=== PATIENT | male | born 1990 | race African-American/Black ===

== ENCOUNTER 2022-08-12 19:38 | Inpatient (IN) | payer OTHER ==
[~2022-08-12] VITALS: Ht 182.9 cm; Wt 128.4 kg
--- NOTE | 2022-08-12 19:58 | NUR ---
Dr Cohen at bedside MSE in progress
[2022-08-12] MEDS ORDERED: HYDROMORPHONE 1 MG/1 ML DISP.SYRIN ONE ×2 (19:59→22:59)
[2022-08-12] MEDS ORDERED: ONDANSETRON 4 MG/2 ML VIAL ONE (19:59)
[2022-08-12] MEDS ORDERED: IV NORMAL SALINE 1000 ML BAG IV ONE (20:00)
[2022-08-12] MEDS ORDERED: ONDANSETRON 4 MG/2 ML VIAL IV ONE (20:00)
[2022-08-12] MEDS ORDERED: HYDROMORPHONE 1 MG/1 ML DISP.SYRIN IV ONE ×2 (20:00→23:00)
[2022-08-12 20:19] LABS: HEMATOCRIT 47.8 % (36.7-47.1); MEAN CORPUSCULAR HEMOGLOBIN 29.7 uug (23.8-33.4); MEAN CORPUSCULAR VOLUME 88.7 fL (73.0-96.2); PLATELET COUNT (AUTO) 396 K/uL (152-348)
--- NOTE | 2022-08-12 20:20 | NUR ---
Patient taken to CT by prosthetics technician
--- NOTE | 2022-08-12 20:33 | NUR ---
Patient is back from CT
[2022-08-12 20:34] LABS: BILIRUBIN,DIRECT 0.4 mg/dL (0.0-0.2); BILIRUBIN,TOTAL 0.9 mg/dL (0.2-1.0); CREATININE 1.5 mg/dL (0.6-1.3); POTASSIUM 3.6 mmol/L (3.5-5.1); TOTAL PROTEIN, SERUM 8.2 g/dL (6.4-8.2)
[2022-08-12] MEDS ORDERED: PIPERACILLIN/TAZO 4.5 GM VIAL IV ONE (21:04)
[2022-08-12] MEDS: PIPERACILLIN SODIUM/TAZOBACTAM 4.5 G in IV DEXTROSE 5% 50 ML IV SCH (21:12)
--- NOTE | 2022-08-12 22:13 | NUR ---
called [facility] for panel call
--- NOTE | 2022-08-12 22:14 | NUR ---
patient is a/ox4, NAD noted.
[2022-08-12 22:31] LABS: *BILIRUBIN,URIN NEGATIVE (NEGATIVE); *BLOOD, URINE NEGATIVE (NEGATIVE); *CLARITY,URINE CLEAR (CLEAR); *COLOR,URINE YELLOW (YELLOW); *KETONES,URINE NEGATIVE (NEGATIVE); LEUKOCYTE ESTERASE ,URINE NEGATIVE (NEGATIVE); NITRITE, URINE NEGATIVE (NEGATIVE); UGLUCOSE NEGATIVE (NEGATIVE)
[2022-08-12 22:36] LABS: BACTERIA,URINE NONE SEEN /HPF (NONE SEEN); RBC,URINE 0-3 /HPF (0-3); WBC,URINE 0-3 /HPF (0-3)
[2022-08-12 22:37] LABS: SQUAMOUS EPITHELIAL CELL,UR FEW /HPF (NONE SEEN)
--- NOTE | 2022-08-12 23:15 | NUR ---
Patient has been accepted by Bear Bermudez NP
--- NOTE | 2022-08-12 23:30 | NUR ---
Paged Dr Lewis for surgery consult
--- NOTE | 2022-08-12 23:31 | NUR ---
called for bed. spoke with Terri THACKER. Patient will be admited to m/s room 321
--- NOTE | 2022-08-12 23:40 | NUR ---
Report given to APURVA THACKER
--- NOTE | 2022-08-13 00:22 | NUR ---
Pt. admitted to m/s room 321 , under care of Bear Bermudez [employer] REPAIRER Belongs List completed Alex RN aware of patient's arrival
--- NOTE | 2022-08-13 01:20 | NUR ---
On room air, sating at 88%, placed pt on O2 at 2LPM now sating at 93%. Noted pt to have SOB and shallow breathing. Will continue to monitor. All needs attended. Addendum: 08/14/22 at 0351 by CARLYLE WILL RN Correction 08/14/22 0130.
[2022-08-13] MEDS ORDERED: REMEDY ESSENTIAL ZINC PASTE 113 GM TP PRN (01:45)
[2022-08-13 04:00] VITALS: BP 110/58
[2022-08-13] MEDS: HYDROMORPHONE 1 MG/1 ML DISP.SYRIN IV PRN ×7 (04:28→23:05)
[2022-08-13] MEDS ORDERED: PIPERACILLIN/TAZO 4.5 GM VIAL IV ONE (04:57)
[2022-08-13] MEDS ORDERED: PIPERACILLIN SODIUM/TAZOBACTAM 4.5 G in IV DEXTROSE 5% 50 ML IV SCH (06:00)
[2022-08-13] MEDS: PIPERACILLIN SODIUM/TAZOBACTAM 4.5 G in IV DEXTROSE 5% 50 ML IV SCH (06:26)
[2022-08-13 06:51] LABS: BILIRUBIN,TOTAL 3.5 mg/dL (0.2-1.0); CREATININE 1.2 mg/dL (0.6-1.3); PHOSPHOROUS 4.4 mg/dL (2.5-4.9); POTASSIUM 4.5 mmol/L (3.5-5.1); TOTAL PROTEIN, SERUM 7.4 g/dL (6.4-8.2)
[2022-08-13 06:56] LABS: HEMATOCRIT 46.5 % (36.7-47.1); MEAN CORPUSCULAR HEMOGLOBIN 29.4 uug (23.8-33.4); MEAN CORPUSCULAR VOLUME 88.9 fL (73.0-96.2); PLATELET COUNT (AUTO) 344 K/uL (152-348)
--- NOTE | 2022-08-13 07:47 | NUR ---
Sleeping, appears comfortable.
[2022-08-13 11:00] VITALS: BP 122/80
[2022-08-13] MEDS: IV NS 1000 ML 1,000 ML IV PRN ×2 (11:31→20:09)
--- NOTE | 2022-08-13 11:31 | NUR ---
NPO maintained. IVF started as ordered, infusing well.
[2022-08-13] MEDS: ENOXAPARIN SODIUM 40 MG/0.4 ML DISP.SYRIN SQ SCH (11:33)
[2022-08-13] MEDS: PIPERACILLIN SODIUM/TAZOBACTAM 3.375 G in IV DEXTROSE 5% 100 ML IV SCH ×2 (13:50→22:55)
[2022-08-13 15:58] VITALS: BP 120/73
--- NOTE | 2022-08-13 18:31 | NUR ---
With intermittent pain relief do not last for 3 hours, dose increased. NPO maintained. IVF infusing well.
[2022-08-13] MEDS ORDERED: FLUT16SP16 NS (18:50)
[2022-08-13 19:58] VITALS: BP 123/77
[2022-08-13] MEDS: FLUCONAZOLE 200 MG/NS 100ML IV 100 MG in PREMIXED 1 EACH IV SCH (20:36)
[2022-08-14] MEDS: HYDROMORPHONE 1 MG/1 ML DISP.SYRIN IV PRN ×7 (02:41→21:15)
[2022-08-14 04:00] VITALS: BP 111/63
[2022-08-14] MEDS: PIPERACILLIN SODIUM/TAZOBACTAM 3.375 G in IV DEXTROSE 5% 100 ML IV SCH ×3 (05:43→21:52)
--- NOTE | 2022-08-14 06:24 | NUR ---
Slept intermittently. Complained of 10/ abdominal pain. Administered Dilaudid 1 mg q3h prn as ordered. Pt reported some relief. Pt also requested for ice chips to relieve dryness of mouth. Instructed pt not to swallow. Reports increased abdominal pain when swallowing water from ice chips. IVF infusing well. All needs attended. Will endorse to incoming shift. Addendum: 08/14/22 at 0639 by CARLYLE WILL RN Noted increased HR and urine output to be orange to red in color. MD lloyd.
[2022-08-14 07:21] LABS: HEMATOCRIT 44.5 % (36.7-47.1); MEAN CORPUSCULAR VOLUME 88.3 fL (73.0-96.2); PLATELET COUNT (AUTO) 345 K/uL (152-348)
[2022-08-14 07:28] LABS: CREATININE 1.1 mg/dL (0.6-1.3); MAGNESIUM 1.9 mg/dL (1.8-2.4); PHOSPHOROUS 2.4 mg/dL (2.5-4.9); POTASSIUM 4.1 mmol/L (3.5-5.1)
[2022-08-14] MEDS: ENOXAPARIN SODIUM 40 MG/0.4 ML DISP.SYRIN SQ SCH (08:53)
[2022-08-14 12:00] VITALS: BP 116/70
[2022-08-14] MEDS: IV NS 1000 ML 1,000 ML IV PRN (14:28)
[2022-08-14 16:05] VITALS: BP 123/75
[2022-08-14] MEDS ORDERED: SODIUM PHOSPHATE MM 15 MMOL in IV NORMAL SALINE 250 ML IV ONE (17:00)
[2022-08-14 20:33] VITALS: BP 128/80
[2022-08-14] MEDS: FLUCONAZOLE 200 MG/NS 100ML IV 100 MG in PREMIXED 1 EACH IV SCH (20:54)
[2022-08-15] VITALS (12 sets, daily range): BP systolic 121–160; BP diastolic 58–101
[2022-08-15] MEDS: HYDROMORPHONE 1 MG/1 ML DISP.SYRIN IV PRN ×3 (00:19→08:03)
[2022-08-15] MEDS: IV NS 1000 ML 1,000 ML IV PRN ×2 (00:23→13:31)
[2022-08-15] MEDS: PIPERACILLIN SODIUM/TAZOBACTAM 3.375 G in IV DEXTROSE 5% 100 ML IV SCH ×2 (06:08→14:03)
[2022-08-15 07:22] LABS: HEMATOCRIT 42.1 % (36.7-47.1); MEAN CORPUSCULAR HEMOGLOBIN 29.7 uug (23.8-33.4); MEAN CORPUSCULAR VOLUME 88.2 fL (73.0-96.2); PLATELET COUNT (AUTO) 378 K/uL (152-348)
[2022-08-15 07:26] LABS: MAGNESIUM 1.9 mg/dL (1.8-2.4); POTASSIUM 3.9 mmol/L (3.5-5.1)
[2022-08-15] MEDS: ENOXAPARIN SODIUM 40 MG/0.4 ML DISP.SYRIN SQ SCH (09:01)
--- NOTE | 2022-08-15 10:55 | NUR ---
Marlen Liang DNP in the unit, informed DNP regarding WBC result and patient's complain of bilateral leg pain with new orders.
[2022-08-15] MEDS ORDERED: ACETAMINOPHEN 650 MG SUPP.RECT RC PRN (11:00)
[2022-08-15] MEDS ORDERED: IOHEXOL 300MG/ML 100 ML INFUS..BTL ONE (11:04)
[2022-08-15] MEDS ORDERED: SWABABLE VALVE TRANSFER SET EA MC ONE (11:05)
[2022-08-15] MEDS ORDERED: IV NORMAL SALINE 250 ML IV ONE (11:05)
[2022-08-15] MEDS: MORPHINE SULFATE 4 MG/1 ML DISP.SYRIN IV PRN ×5 (11:07→21:15)
[2022-08-15] MEDS: ONDANSETRON 4 MG/2 ML VIAL IV PRN (11:16)
--- NOTE | 2022-08-15 14:30 | NUR ---
Patient seen by Marlen Liang DNP with order to insert NGT and connect to continuous low suction. NGT inserted and noted 260 ml greenish fluid coming out of NGT. DNP made aware.
[2022-08-15] MEDS ORDERED: OXYMETAZOLINE NASAL 0.05% 15 ML SPRAY NS PRN (14:45)
[2022-08-15] MEDS: FLUTICASONE PROP NASAL SPRAY 16 GM BOTTLE NS SCH (14:45)
[2022-08-15] MEDS ORDERED: MEROPENEM 0.5 G in IV NORMAL SALINE 50 ML IV SCH (15:15)
[2022-08-15] MEDS ORDERED: IV NS 1000 ML 1,000 ML IV ONE (15:30)
[2022-08-15 16:00] LABS: HEMATOCRIT 43.6 % (36.7-47.1); MEAN CORPUSCULAR HEMOGLOBIN 29.4 uug (23.8-33.4); PLATELET COUNT (AUTO) 420 K/uL (152-348)
[2022-08-15] MEDS: METRONIDAZOLE 500 MG/NS 100ML 500 MG in PREMIXED 1 EACH IV SCH (16:00)
--- NOTE | 2022-08-15 16:05 | NUR ---
Transferred patient to ICU rm 1A. report given to Deirdre THACKER.
--- NOTE | 2022-08-15 16:30 | NUR ---
Nursing customer records division supervisor Lauren informed of the need of a Midline insertion. Awaiting ML rn. arrival confirmation time.
--- NOTE | 2022-08-15 17:27 | NUR ---
Received pt. On sinus tachycardia temp of 100.5 for which a suppository was immediately administered. Sbp within desire limits. 140/56. RR14, IV NC 2 liters with saturation of 95%. Pt. with c/of of feeling unable to take a deep breath. IV line to LAC G-20 with dry blood and scant leaking noted but patent, upon testing. New RAC G 20 started. Pt. situated in bed by endorsing rn. Will continue with care plan
[2022-08-15] MEDS ORDERED: MORPHINE SULFATE 4 MG/1 ML DISP.SYRIN ONE ×2 (17:38→21:03)
--- NOTE | 2022-08-15 18:50 | NUR ---
Left pt. in bed resting, sleeping intermittently, When not sleeping fully AAOX4. Hemodynamically stable, NSR HR in the 8-95. On 2liter Nc with saturation of 95-98%. Shallow breathing. NG to low intermittent suctioning. with small amount of greenish bile fluid. Iv line to LAC patent and RAC dcd and new G18 inserted to right hand. Will endorse to incoming shift for continuity of care.
[2022-08-15] MEDS: VANCOMYCIN IV 1,500 MG in IV DEXTROSE 5% 500 ML IV SCH (18:54)
[2022-08-15] MEDS ORDERED: LIDOCAINE 2% (GLYDO= UROJET) 10 ML JELLY MM PRN (20:00)
[2022-08-15] MEDS ORDERED: LIDOCAINE 2% (GLYDO= UROJET) 10 ML JELLY MM ONE (20:16)
--- NOTE | 2022-08-15 20:45 | NUR ---
Pt. was endorsed by off going day nurse Deirdre RN. Complete assessment rendered as documemted on flowsheet. Pt. was c/o discomfort to throat from NGT insertion. Rosie obtained from Dr. Cohen for lidocaine jelly 5cc to be placed in throat. Repeat in 15 min. if pain/discomfort not resolved. PTT drawn and sent to lab for pending procedeure.
--- NOTE | 2022-08-15 21:16 | NUR ---
Pt. taken down to Radiology accompanied by RN AGRICULTURE INSPECTOR and tech. MOrphine 4mg ivp given for abdominal pain and remaining 5 cc of lidocaine given for c/o throat discomfort. Pt. reported feeling effects of pain medication Morphine within 40 sec. of injection. decreased pain.
[2022-08-15] MEDS ORDERED: LIDOCAINE HCL 1% 20 ML VIAL ONE (21:38)
--- NOTE | 2022-08-15 22:20 | NUR ---
Pt.received back to unit. Tolerated procedure. Drain noted to right lower abdomen with opaque yellow orange secretions noted at 260cc. pt, commenting on procedure. Family allowed to come see pt, briefly before leaving. acclimated to unit. VS q 15 x 1 hour. Lab will be sending cytology specimen out for evaluation.
--- NOTE | 2022-08-15 22:33 | NUR ---
924 pt taken from ER bed 1B to CT scan 929 Time out done for right abdominal procedure with CT scan. 956 procedure done pt talerated procedure well stable. Place on O2 at 3 lpm nc for procedure 2209 Cytolgy sample sent to lab for send out. 2214 pt back in ER bed 1B awake alert with agustin working on right side of lateral abdomin. 2219 report given to Jorge FAGOT HEATER.
--- NOTE | 2022-08-15 23:00 | NUR ---
Pharmacy called and spoke to Joseline downstream biomanufacturing technician. Made aware that due to pt. going for procedure and IV line access limited that ABX are running off schedule. Said to make note of situation . Pharmacy would not be changing schedule of meds at this time.
--- NOTE | 2022-08-15 23:00 | NUR ---
Left AC Iv acess site removed. Catheter intact. Pt. reports "tenderness" but denies pain. Flushes well but no aspiration. New IV site started to Right hand. #20 cathlon placed 2nd attempt without incident.
[2022-08-16] VITALS (10 sets, daily range): BP systolic 126–146; BP diastolic 73–87
[2022-08-16] MEDS ORDERED: IV NORMAL SALINE 500 ML IV ONE (00:15)
[2022-08-16] MEDS ORDERED: MORPHINE SULFATE 4 MG/1 ML DISP.SYRIN ONE ×3 (00:15→07:43)
[2022-08-16] MEDS: MORPHINE SULFATE 4 MG/1 ML DISP.SYRIN IV PRN ×6 (00:21→21:14)
[2022-08-16] MEDS: FLUCONAZOLE 200 MG/NS 100ML IV 100 MG in PREMIXED 1 EACH IV SCH ×2 (00:30→20:55)
[2022-08-16] MEDS: MEROPENEM 1 G in IV NORMAL SALINE 100 ML IV SCH ×4 (00:32→22:37)
[2022-08-16] MEDS: METRONIDAZOLE 500 MG/NS 100ML 500 MG in PREMIXED 1 EACH IV SCH ×2 (01:45→07:52)
--- NOTE | 2022-08-16 01:50 | NUR ---
Made pharmacy aware that Vancomycin trough was not drawn prior to the 0200 am scheduled dose. Lab scheduled to be drawn at 1700 08/16/22. Pharmacist said to give 0200 dose as scheduled. This was in reference to the note written by pharmacy to hold for trough >20. No trough to telephone sterilizer by at this time.
[2022-08-16] MEDS: VANCOMYCIN IV 1,500 MG in IV DEXTROSE 5% 500 ML IV SCH ×3 (03:15→18:14)
--- NOTE | 2022-08-16 03:54 | NUR ---
Pt. sleeping at present time VSS. No c/o pain. Last MSO4 dose at 0315. Exdplained to pt. that if hes sleeping that I would not wake him up to receive meds for pain. They are not scheduled. He was inquiring as to if he missed a dose because of sleeping. Abdominal drain intact. No leakage.
[2022-08-16 05:21] LABS: HEMATOCRIT 40.6 % (36.7-47.1); MEAN CORPUSCULAR HEMOGLOBIN 29.3 uug (23.8-33.4); MEAN CORPUSCULAR VOLUME 87.8 fL (73.0-96.2); PLATELET COUNT (AUTO) 403 K/uL (152-348)
[2022-08-16 05:31] LABS: CREATININE 0.9 mg/dL (0.6-1.3); PHOSPHOROUS 2.6 mg/dL (2.5-4.9); POTASSIUM 3.6 mmol/L (3.5-5.1)
[2022-08-16] MEDS: IV NS 1000 ML 1,000 ML IV PRN (06:23)
--- NOTE | 2022-08-16 06:25 | NUR ---
PICC LINE RN in for placement of line for patient. MidLine placed to left upper arm instead of PICC. Pt. toleratede well. Pt. continues to c/o discomfort to throat secondary to NGT. Remains intact to LIS. PLacement verified. NO secretions from nares noted. We will ask MD to re evaluate need for drain and to speak with pt. Endorsed pt. to oncoming RN. All procedures explained to patient. He appears to be overwhelmed. VSS
--- NOTE | 2022-08-16 07:33 | NUR ---
Received pt. sleeping/intermittently. cardiac-on sinus tachycardia low 100's. sbp within desired limits. on NC 2liters with saturation of 96%. Afebrile. Abdominal distention with cari drainage with yellowish drainage in small amount. in place since 209908/15/22. Mline in place newly placed. Will continue to monitor.
[2022-08-16] MEDS ORDERED: ENOXAPARIN SODIUM 40 MG/0.4 ML DISP.SYRIN SQ ONE (07:43)
[2022-08-16] MEDS: ENOXAPARIN SODIUM 40 MG/0.4 ML DISP.SYRIN SQ SCH (08:06)
[2022-08-16] MEDS: FLUTICASONE PROP NASAL SPRAY 16 GM BOTTLE NS SCH (08:11)
--- NOTE | 2022-08-16 08:11 | NUR ---
flonase not administered pt with NG tube refusing because he feels something in his throat.
--- NOTE | 2022-08-16 08:14 | NUR ---
A call to attending BRYANT Liang at this time she was informed of pt's clinical condition and most current complains orders. to dcd NG-T received and implemented.
--- NOTE | 2022-08-16 08:21 | NUR ---
Surgeon Dr. Lewis at bedside. Addendum: 08/16/22 at 0822 by JERRY CABALLERO RN Per surgeon may have some ice-chips.
--- NOTE | 2022-08-16 11:13 | NUR ---
Attending BRYANT Mckeon in the unit to see and examine pt. report given and orders to down-grade pt. to telemetry and to resend drainage specimen received and implemented.
--- NOTE | 2022-08-16 11:28 | NUR ---
Telephone report given to Cesar Shannon. patient will be taken up to 321 under telemetry monitoring. Patient AAOX4. no changes from assessment this morning HR of 89 sbp 132/70 saturation 96%. no respiratory distress noted. Ml patent and infusing with Fluids.
--- NOTE | 2022-08-16 11:40 | NUR ---
Patient scrap picker by Cesra merritt in the waiting area notified.
--- NOTE | 2022-08-16 13:00 | NUR ---
Bowel sounds hypoactive throughout. Discussed to pt importance of staying NPO and to let his stomach rest and will limit his ice chips. Pt agreeable with plan of care. External drainage on right abd draining cloudy yellow fluids. Instructed pt to use IS x 10 WA to promote lung expansion and deep breathing. Pt able to properly return demonstrate use of IS. Discussed with pt pain management offered to try to use ICE on abdomen - pt agreeable. Discussed side effects of pain medications with constipations and respiratory distress. Pt has multiple iV sites. Pt has right hand #20, L upper midline, and right hand #20. All patent and flushed without any resistance. Pt on tele SNR. will continue to monitor patient. Pt currently denies any c/o pain.
--- NOTE | 2022-08-16 18:54 | NUR ---
Noted Brownish/reddish cloudy urine output with sediments. Pt has been using his IS. Pt's pain managed with ICE pack and medications as ordered. Current Vanco level is 9.5 and ok to give vanco per pharmacist recommendations. IVF infusing as ordered. Call light is within reach.
--- NOTE | 2022-08-16 22:45 | NUR ---
Patient in bed alert oriented, no sob no chest pain, sinus on tele monitor, with drain on r lower quadrant draining with yellow color fluid in small amount at this time, complain of 8/10 abd pain, given Morphine 4mg as ordered, with effective results, voiding reddish orange color urine, as noted before by am RN, no complain of pain on urination, cont to monitor.
[2022-08-17] VITALS: BP 122/86
[2022-08-17] MEDS: ONDANSETRON 4 MG/2 ML VIAL IV PRN (01:14)
[2022-08-17] MEDS: MORPHINE SULFATE 4 MG/1 ML DISP.SYRIN IV PRN ×5 (01:15→19:57)
[2022-08-17] MEDS: VANCOMYCIN IV 2,000 MG in IV DEXTROSE 5% 500 ML IV SCH ×3 (02:08→17:47)
[2022-08-17 04:00] VITALS: BP 137/94
[2022-08-17] MEDS: MEROPENEM 1 G in IV NORMAL SALINE 100 ML IV SCH ×3 (06:05→21:11)
[2022-08-17 06:24] LABS: HEMATOCRIT 38.8 % (36.7-47.1); MEAN CORPUSCULAR HEMOGLOBIN 29.4 uug (23.8-33.4); MEAN CORPUSCULAR VOLUME 88.3 fL (73.0-96.2); PLATELET COUNT (AUTO) 409 K/uL (152-348)
[2022-08-17] MEDS: IV NS 1000 ML 1,000 ML IV PRN ×2 (06:45→14:21)
[2022-08-17 07:03] LABS: CARBON DIOXIDE 30 mmol/L (21-32); CHLORIDE 104 mmol/L (98-107); CREATININE 0.8 mg/dL (0.6-1.3); GLUCOSE 117 mg/dL (74-106); MAGNESIUM 1.9 mg/dL (1.8-2.4); POTASSIUM 3.4 mmol/L (3.5-5.1); UREA NITROGEN, BLOOD 8 mg/dL (7-18)
[2022-08-17] MEDS: POTASSIUM CHLORIDE 50 ML IV SCH ×2 (09:14→10:36)
[2022-08-17] MEDS: ENOXAPARIN SODIUM 40 MG/0.4 ML DISP.SYRIN SQ SCH (09:15)
[2022-08-17] MEDS: FLUTICASONE PROP NASAL SPRAY 16 GM BOTTLE NS SCH (09:15)
[2022-08-17 10:28] VITALS: BP 135/87
[2022-08-17 15:59] VITALS: BP 142/87
[2022-08-17 16:31] LABS: *BILIRUBIN,URIN 2+ (NEGATIVE); *CLARITY,URINE CLEAR (CLEAR); *COLOR,URINE DARK YELLOW (YELLOW); *KETONES,URINE 1+ (NEGATIVE); LEUKOCYTE ESTERASE ,URINE NEGATIVE (NEGATIVE); NITRITE, URINE NEGATIVE (NEGATIVE); PH,URINE 6.5 (5.0-8.0); UGLUCOSE NEGATIVE (NEGATIVE)
[2022-08-17 16:45] LABS: *BLOOD, URINE TRACE (NEGATIVE)
[2022-08-17 17:28] LABS: SQUAMOUS EPITHELIAL CELL,UR FEW /HPF (NONE SEEN); WBC,URINE 0-3 /HPF (0-3)
--- NOTE | 2022-08-17 19:46 | NUR ---
SHIFT NOTE. PT IS ALERT AND ORIENTED. MORPHINE PRN WAS GIVEN FOR PAIN. PT IS ENCOURAGED TO USE INCENTIVE INSPIROMETER. ADOLFO MIDLINE INTACT AND PATEN. R LOWER ABDOMEN PIGTAIL CATH DRAIN WAS PATENT AND DRAINING YELLOWISH FLUID. PT TOLERATED WELL WALKING WITH WALKER. A LITTLE PAIN AND DISCOMFORT WAS VERBALIZED BY PT AFTER WALKING. WILL ENDORSED TO ONCOMING SHIFT.
[2022-08-17 20:00] VITALS: BP 132/86
[2022-08-17] MEDS: FLUCONAZOLE 200 MG/NS 100ML IV 100 MG in PREMIXED 1 EACH IV SCH (20:43)
[2022-08-18] VITALS: BP 128/88
[2022-08-18] MEDS: MORPHINE SULFATE 4 MG/1 ML DISP.SYRIN IV PRN ×6 (00:07→21:40)
[2022-08-18] MEDS: VANCOMYCIN IV 2,000 MG in IV DEXTROSE 5% 500 ML IV SCH ×3 (01:45→21:43)
[2022-08-18] MEDS: IV NS 1000 ML 1,000 ML IV PRN (03:10)
[2022-08-18 04:53] VITALS: BP 135/82
[2022-08-18] MEDS: MEROPENEM 1 G in IV NORMAL SALINE 100 ML IV SCH ×3 (05:04→21:43)
[2022-08-18 06:54] LABS: HEMATOCRIT 36.9 % (36.7-47.1); MEAN CORPUSCULAR HEMOGLOBIN 29.4 uug (23.8-33.4); MEAN CORPUSCULAR VOLUME 87.4 fL (73.0-96.2); PLATELET COUNT (AUTO) 403 K/uL (152-348)
[2022-08-18 07:33] LABS: CARBON DIOXIDE 31 mmol/L (21-32); CHLORIDE 102 mmol/L (98-107); CREATININE 0.8 mg/dL (0.6-1.3); GLUCOSE 133 mg/dL (74-106); MAGNESIUM 1.9 mg/dL (1.8-2.4); PHOSPHOROUS 3.9 mg/dL (2.5-4.9); POTASSIUM 3.3 mmol/L (3.5-5.1); UREA NITROGEN, BLOOD 8 mg/dL (7-18)
[2022-08-18] MEDS ORDERED: POTASSIUM CHLORIDE 50 ML IV SCH (09:30)
[2022-08-18] MEDS ORDERED: POTASSIUM CHLORIDE 20 MEQ POWDER PACKET PO ONE (10:00)
[2022-08-18] MEDS: ENOXAPARIN SODIUM 40 MG/0.4 ML DISP.SYRIN SQ SCH (10:00)
[2022-08-18] MEDS: FLUTICASONE PROP NASAL SPRAY 16 GM BOTTLE NS SCH (10:02)
[2022-08-18] MEDS: ONDANSETRON 4 MG/2 ML VIAL IV PRN ×3 (10:04→21:41)
[2022-08-18 11:55] VITALS: BP 146/97
[2022-08-18 16:06] VITALS: BP 142/80
--- NOTE | 2022-08-18 19:27 | NUR ---
SHIFT NOTE: PT ALERT AND ORIENTED. NO ACUTE DISTRESS NOTED. AFEBRILE. PAIN IN ABDOMINAL AREA NOTED. GAVE PRN MORPHINE FOR PAIN CONTROL. PT IS AMBULATING OCCASIONALLY. PT HAVE A LOOSE BM 2X. PIG TAIL CATH PATENT AND DRAINING WELL 30CC OUTPUT. PT WAS SEEN BY DR. PARSON AND HOSPITALIST NO NEW ORDER GIVEN. WBC TRENDING DOWN CONTINUE ABX TX PER MD. VANCO TROUGH AT 0700 NIDIA, HOLD IF DOSE IF >20. VITALS WNL. PT IS ON CLEAR LIQUIDS, F/U WITH MD REGARDING ADVANCING DIET.
[2022-08-18 20:00] VITALS: BP 134/84
[2022-08-18] MEDS: FLUCONAZOLE 200 MG/NS 100ML IV 100 MG in PREMIXED 1 EACH IV SCH (21:20)
[2022-08-19] VITALS: BP 128/75
[2022-08-19] MEDS: MORPHINE SULFATE 4 MG/1 ML DISP.SYRIN IV PRN ×7 (01:22→21:35)
[2022-08-19 04:00] VITALS: BP 132/77
[2022-08-19] MEDS: ONDANSETRON 4 MG/2 ML VIAL IV PRN ×3 (05:06→18:26)
[2022-08-19] MEDS: MEROPENEM 1 G in IV NORMAL SALINE 100 ML IV SCH ×3 (05:18→22:43)
--- NOTE | 2022-08-19 06:48 | NUR ---
Pt stable medicated with Morphine and Zofran PRN with good effect. Tolerating Full liquid diet. Pigtail drainage to RT lateral abdomen draining clear juan drainage. 20 mls emptied. Afebrile Labs Drawn.
[2022-08-19 07:33] LABS: PHOSPHOROUS 4.2 mg/dL (2.5-4.9)
[2022-08-19 07:36] LABS: CARBON DIOXIDE 33 mmol/L (21-32); CHLORIDE 103 mmol/L (98-107); CREATININE 0.8 mg/dL (0.6-1.3); GLUCOSE 102 mg/dL (74-106); POTASSIUM 3.5 mmol/L (3.5-5.1); UREA NITROGEN, BLOOD 7 mg/dL (7-18); VANCOMYCIN,TROUGH 16.4 ug/mL (12.0-20.0)
[2022-08-19] MEDS: VANCOMYCIN IV 2,000 MG in IV DEXTROSE 5% 500 ML IV SCH ×2 (08:00→17:01)
[2022-08-19] MEDS: FLUTICASONE PROP NASAL SPRAY 16 GM BOTTLE NS SCH (08:24)
[2022-08-19] MEDS: ENOXAPARIN SODIUM 40 MG/0.4 ML DISP.SYRIN SQ SCH (08:24)
[2022-08-19 08:38] LABS: HEMATOCRIT 37.7 % (36.7-47.1); MEAN CORPUSCULAR HEMOGLOBIN 30.1 uug (23.8-33.4); MEAN CORPUSCULAR VOLUME 86.9 fL (73.0-96.2); PLATELET COUNT (AUTO) 399 K/uL (152-348)
[2022-08-19] MEDS: IV NS 1000 ML 1,000 ML IV PRN (09:32)
[2022-08-19 11:07] VITALS: BP 125/83
[2022-08-19 15:09] VITALS: BP 125/82
--- NOTE | 2022-08-19 18:16 | NUR ---
Patient tolerating care well throughout shift with management of pain through medicinal interventions. IV site patent and intact. Pigtail drainage clearing juan drainage. Total of 20 cc emptied. No fever during shift. Bed left in lowest position with call light within reach. Will endorse information to PM nurse. Comfort measures provided.
[2022-08-19 20:00] VITALS: BP 132/72
[2022-08-19] MEDS: FLUCONAZOLE 200 MG/NS 100ML IV 100 MG in PREMIXED 1 EACH IV SCH (20:51)
[2022-08-20] MEDS: MORPHINE SULFATE 4 MG/1 ML DISP.SYRIN IV PRN ×4 (00:40→09:42)
[2022-08-20] MEDS: ONDANSETRON 4 MG/2 ML VIAL IV PRN ×2 (00:47→13:39)
[2022-08-20 04:00] VITALS: BP 128/81
[2022-08-20] MEDS: VANCOMYCIN IV 2,000 MG in IV DEXTROSE 5% 500 ML IV SCH ×2 (04:08→15:44)
[2022-08-20 05:15] LABS: HEMATOCRIT 36.9 % (36.7-47.1); MEAN CORPUSCULAR HEMOGLOBIN 30.3 uug (23.8-33.4); MEAN CORPUSCULAR VOLUME 86.8 fL (73.0-96.2); PLATELET COUNT (AUTO) 401 K/uL (152-348)
[2022-08-20 05:49] LABS: MAGNESIUM 1.9 mg/dL (1.8-2.4); PHOSPHOROUS 3.7 mg/dL (2.5-4.9); POTASSIUM 3.4 mmol/L (3.5-5.1)
[2022-08-20] MEDS: MEROPENEM 1 G in IV NORMAL SALINE 100 ML IV SCH ×3 (06:36→21:54)
--- NOTE | 2022-08-20 07:00 | NUR ---
Pigtail drainage to RT lateral abdomen intact and draining clear juan drainage, 15 ml emptied. Medicated for pain and nausea. Slept intermittently.
[2022-08-20] MEDS: ENOXAPARIN SODIUM 40 MG/0.4 ML DISP.SYRIN SQ SCH (08:54)
[2022-08-20] MEDS: FLUTICASONE PROP NASAL SPRAY 16 GM BOTTLE NS SCH (09:00)
[2022-08-20] MEDS ORDERED: POTASSIUM CHLORIDE 20 MEQ TAB.PRT.SR PO ONE (10:00)
[2022-08-20 11:41] VITALS: BP 131/80
[2022-08-20] MEDS ORDERED: MORPHINE SULFATE 4 MG/1 ML DISP.SYRIN IV PRN (13:15)
[2022-08-20 15:17] VITALS: BP 127/88
[2022-08-20] MEDS ORDERED: IOHEXOL 300MG/ML 100 ML INFUS..BTL ONE (15:32)
[2022-08-20] MEDS ORDERED: SWABABLE VALVE TRANSFER SET EA MC ONE (15:32)
[2022-08-20] MEDS ORDERED: IV NORMAL SALINE 250 ML IV ONE (15:32)
[2022-08-20] MEDS: MORPHINE SULFATE 2 MG/1 ML DISP.SYRIN IV PRN ×2 (18:23→22:25)
[2022-08-20] MEDS: METOCLOPRAMIDE HCL 10 MG/2 ML VIAL IV SCH (18:23)
[2022-08-20 20:00] VITALS: BP 132/88
[2022-08-20] MEDS: FLUCONAZOLE 100 MG TABLET PO SCH (21:03)
[2022-08-20] MEDS: IV NS 1000 ML 1,000 ML IV PRN (21:59)
[2022-08-21] MEDS: METOCLOPRAMIDE HCL 10 MG/2 ML VIAL IV SCH ×4 (00:08→22:31)
[2022-08-21] MEDS: VANCOMYCIN IV 2,000 MG in IV DEXTROSE 5% 500 ML IV SCH (00:08)
[2022-08-21] MEDS: MORPHINE SULFATE 2 MG/1 ML DISP.SYRIN IV PRN ×6 (02:47→23:24)
[2022-08-21 04:00] VITALS: BP 120/76
[2022-08-21] MEDS: MEROPENEM 1 G in IV NORMAL SALINE 100 ML IV SCH (06:00)
[2022-08-21 07:22] LABS: HEMATOCRIT 38.1 % (36.7-47.1); MEAN CORPUSCULAR HEMOGLOBIN 29.9 uug (23.8-33.4); MEAN CORPUSCULAR VOLUME 86.7 fL (73.0-96.2); PLATELET COUNT (AUTO) 428 K/uL (152-348)
[2022-08-21 08:07] LABS: MAGNESIUM 2.1 mg/dL (1.8-2.4); PHOSPHOROUS 3.8 mg/dL (2.5-4.9); POTASSIUM 3.6 mmol/L (3.5-5.1)
[2022-08-21] MEDS: ENOXAPARIN SODIUM 40 MG/0.4 ML DISP.SYRIN SQ SCH (08:36)
[2022-08-21] MEDS: FLUTICASONE PROP NASAL SPRAY 16 GM BOTTLE NS SCH (08:36)
[2022-08-21] MEDS: PIPERACILLIN SODIUM/TAZOBACTAM 3.375 G in IV DEXTROSE 5% 100 ML IV SCH ×2 (11:36→19:38)
[2022-08-21 12:00] VITALS: BP 136/77
[2022-08-21] MEDS ORDERED: PIPERACILLIN SODIUM/TAZOBACTAM 3.375 G in IV DEXTROSE 5% 50 ML IV SCH (12:00)
[2022-08-21 15:04] VITALS: BP 136/83
[2022-08-21 16:39] VITALS: BP 133/86
[2022-08-21] MEDS: FLUCONAZOLE 100 MG TABLET PO SCH (20:59)
[2022-08-21] MEDS: IV NS 1000 ML 1,000 ML IV PRN (21:00)
[2022-08-21 21:34] VITALS: BP 119/78
[2022-08-22] MEDS: PIPERACILLIN SODIUM/TAZOBACTAM 3.375 G in IV DEXTROSE 5% 100 ML IV SCH ×3 (01:38→19:10)
[2022-08-22] MEDS: MORPHINE SULFATE 2 MG/1 ML DISP.SYRIN IV PRN ×7 (01:38→21:36)
[2022-08-22 04:33] VITALS: BP 127/92
[2022-08-22] MEDS: METOCLOPRAMIDE HCL 10 MG/2 ML VIAL IV SCH ×3 (06:08→21:08)
[2022-08-22 07:39] LABS: HEMATOCRIT 38.1 % (36.7-47.1); MEAN CORPUSCULAR VOLUME 86.9 fL (73.0-96.2); PLATELET COUNT (AUTO) 460 K/uL (152-348)
[2022-08-22 07:52] LABS: PHOSPHOROUS 3.9 mg/dL (2.5-4.9); POTASSIUM 3.6 mmol/L (3.5-5.1)
[2022-08-22] MEDS: ENOXAPARIN SODIUM 40 MG/0.4 ML DISP.SYRIN SQ SCH (08:33)
[2022-08-22] MEDS: FLUTICASONE PROP NASAL SPRAY 16 GM BOTTLE NS SCH (08:34)
[2022-08-22] MEDS: IV NS 1000 ML 1,000 ML IV PRN (10:37)
[2022-08-22 11:18] VITALS: BP 130/92
[2022-08-22 16:52] VITALS: BP 129/94
[2022-08-22 20:00] VITALS: BP 127/88
[2022-08-22] MEDS: FLUCONAZOLE 100 MG TABLET PO SCH (20:23)
[2022-08-23] MEDS: MORPHINE SULFATE 2 MG/1 ML DISP.SYRIN IV PRN ×5 (01:34→20:38)
[2022-08-23] MEDS: PIPERACILLIN SODIUM/TAZOBACTAM 3.375 G in IV DEXTROSE 5% 100 ML IV SCH ×3 (02:01→19:00)
[2022-08-23 04:00] VITALS: BP 112/78
[2022-08-23] MEDS: METOCLOPRAMIDE HCL 10 MG/2 ML VIAL IV SCH ×3 (05:08→22:08)
[2022-08-23] MEDS: IV NS 1000 ML 1,000 ML IV PRN ×2 (06:12→20:39)
[2022-08-23 06:19] LABS: HEMATOCRIT 39.6 % (36.7-47.1); MEAN CORPUSCULAR HEMOGLOBIN 29.6 uug (23.8-33.4); MEAN CORPUSCULAR VOLUME 87.4 fL (73.0-96.2); PLATELET COUNT (AUTO) 462 K/uL (152-348)
[2022-08-23 06:41] LABS: CREATININE 0.9 mg/dL (0.6-1.3); MAGNESIUM 2.2 mg/dL (1.8-2.4); PHOSPHOROUS 4.5 mg/dL (2.5-4.9); POTASSIUM 4.1 mmol/L (3.5-5.1)
[2022-08-23] MEDS: ENOXAPARIN SODIUM 40 MG/0.4 ML DISP.SYRIN SQ SCH (08:56)
[2022-08-23] MEDS: FLUTICASONE PROP NASAL SPRAY 16 GM BOTTLE NS SCH (08:57)
[2022-08-23] MEDS ORDERED: PIPE3.379 IV (09:24)
[2022-08-23] MEDS ORDERED: METO5TAB87 PO (09:24)
[2022-08-23 11:31] VITALS: BP 130/92
[2022-08-23 15:40] VITALS: BP 137/94
[2022-08-23 20:00] VITALS: BP 139/97
[2022-08-23] MEDS: FLUCONAZOLE 100 MG TABLET PO SCH (20:37)
[2022-08-24] MEDS: PIPERACILLIN SODIUM/TAZOBACTAM 3.375 G in IV DEXTROSE 5% 100 ML IV SCH ×2 (03:29→11:46)
[2022-08-24] MEDS: MORPHINE SULFATE 2 MG/1 ML DISP.SYRIN IV PRN ×2 (03:30→14:12)
--- NOTE | 2022-08-24 05:47 | NUR ---
SHIFT NOTE: PT IS ALERT AND ORIENTED X4 PT HAS IV FLUIDS OF NS INFUSING A T 100ML/HR NO SIGNS OF INFILTRATION NOTED. PT GIVEN ANTIBIOTIC ORDERED NO SIGNS OF ADVERSE REACTION PT GIVEN 2 MG OF MORPHINE FOR ABD PAIN EARLIER DURING PT WALKED TO ELEVATOR AND BACK. PT HAS PIGTAIL DRAINING CLEAR YELLOW TING DRAINAGE. THE PRINTED CIRCUIT BOARDS BEVELER WROTE D/C SUMMARY OF PT. 1. D/C HOME,2. ZOSYN 3.75 TID FOR 3 WEEKS, 3.OUT PT FOR REPEAT CT SCAN IN 1 WEEK. AND LASTLY FOLLOW-UP WITH DR FLANAGAN IN 1 WEEKS.WILL ENDORSE TO AM NURSE NO SIGNS OF DISTRESS DURING SHIFT. FALL AND SAFETY MAINTAINED THROUGHOUT SHIFT.
[2022-08-24] MEDS: METOCLOPRAMIDE HCL 10 MG/2 ML VIAL IV SCH (06:10)
[2022-08-24 08:00] VITALS: BP 119/84
--- NOTE | 2022-08-24 09:00 | NUR ---
RECEIVED PT ON BED AND HAVING BREAKFAST. PT IS ALERT AND ORIENTED.NO ACUTE DISTRESS NOTED. NO PAIN COMPLAIN. IV ACCESS INTACT AND PATEN. PIG TAIL CATH DRAIN ON RIGHT ABDOMEN INTACT AND DRAINING.
[2022-08-24] MEDS: ENOXAPARIN SODIUM 40 MG/0.4 ML DISP.SYRIN SQ SCH (09:13)
[2022-08-24] MEDS: FLUTICASONE PROP NASAL SPRAY 16 GM BOTTLE NS SCH (09:15)
[2022-08-24 10:28] VITALS: BP 132/100
[2022-08-24] MEDS ORDERED: METOCLOPRAMIDE HCL 10 MG TABLET PO SCH (11:30)
[2022-08-24 17:05] VITALS: BP 144/104
--- NOTE | 2022-08-24 17:54 | NUR ---
MIDLINE DRESSING CHANGED DONE. PIG TAIL CATH DRESSING CHANGED DONE.
--- NOTE | 2022-08-24 17:57 | NUR ---
PT IS DISCHARGE. ALL BELONGINGS ACCOUNTED FOR. EXIT CARE TEACHING PROVIDED. PT WILL GO HOME WITH HIS MOTHER VIA PRIVATE CAR. GEN SURGERY NO. WAS GIVEN TO THE PT FOR FOLLOW UP. PT WILL LEAVE WITH A MIDLINE ON RIGHT FOREARM PATENT AND INTACT FOR CONTINUATION OF ABX TX AT HOME.
== END 2022-08-24 18:15 | disposition home health service (06) | DRG 871 ==
LOC: ER 19:44 → MEDSURG3 22:00 → TRANSITION 08-15 16:10 → TELE3 08-16 11:50 → MEDSURG3 08-19 08:15
PROVIDERS: ADMIT Nurse Practitioner Acute Care; ATTEND Registered Nurse
PROC: 0W9J30Z Drainage of Pelvic Cavity with Drainage Device, Percutaneous Approach (ICD-10-PCS; principal; 2022-08-15)
PROC: 05H633Z Insertion of Infusion Device into Left Subclavian Vein, Percutaneous Approach (ICD-10-PCS; 2022-08-16)
PROC: B547ZZA Ultrasonography of Left Subclavian Vein, Guidance (ICD-10-PCS; 2022-08-16)
PROC: 05H533Z Insertion of Infusion Device into Right Subclavian Vein, Percutaneous Approach (ICD-10-PCS; 2022-08-22)
PROC: B546ZZA Ultrasonography of Right Subclavian Vein, Guidance (ICD-10-PCS; 2022-08-22)
DX: A41.9 Sepsis, unspecified organism (principal); J15.9 Unspecified bacterial pneumonia; N17.0 Acute kidney failure with tubular necrosis; K57.20 Diverticulitis of large intestine with perforation and abscess without bleeding; D68.69 Other thrombophilia; E87.6 Hypokalemia; E66.9 Obesity, unspecified; Z20.822 Contact with and (suspected) exposure to COVID-19; Z68.38 Body mass index [BMI] 38.0-38.9, adult
CPT/HCPCS: 36415; 71045; 83605; 83735; 84100; 85025; 85610; 87040; 87070; 87205; 93005; A4663; G0378; J1170; J1450; J1650; J2185; J2270; J2405; J2543; J2765; J3370; J3480; J3490; J3535; J7040; J7060; J8597; Q9967